=== PATIENT | male | born 1960 | race Caucasian/White ===

== ENCOUNTER 2016-10-11 05:54 | Observation (INO) | payer OTHER ==
[2016-10-11] MEDS ORDERED: NS 0.9% 1000 ML* 1,000 ML IV SCH (06:15)
[2016-10-11 06:43] LABS: Hematocrit 44 % (42-52); Hemoglobin 14.8 g/dl (14.0-18.0); Mean Corpuscular HGB Conc 34 g/dl (31-36); Mean Corpuscular Hemoglobin 29 pg (27-31); Mean Corpuscular Volume 84 fL (80-94); Mean Platelet Volume 8 um3 (7.4-10.4); Red Blood Count 5.17 10^6/ul (4.0-5.4); Red Cell Distribution Width 13 % (10.5-15); White Blood Count 8.1 10^3/ul (3.5-10.8)
[2016-10-11 06:53] LABS: Albumin 4.2 g/dL (3.2-5.2); BUN/Creatinine Ratio 12.7 (8-20); Calcium 9.2 mg/dL (8.6-10.3); EGFR African American 89.4 (>60); EGFR Non-African American 69.5 (>60); Globulin 3.1 g/dL (2-4); Potassium 3.2 mmol/L (3.5-5.0); Total Bilirubin 0.7 mg/dL (0.2-1.0); Total Protein 7.3 g/dL (6.4-8.9)
[2016-10-11] MEDS ORDERED: Aspirin TAB* 325 MG PO ONE (07:02)
[2016-10-11] MEDS ORDERED: Potassium Chlor TAB* 20 MEQ TAB.ER PO ONE (07:03)
--- NOTE | 2016-10-11 07:08 | ED ---
Mariam Shook Rebecca, scribed for Joe Begum on 10/11/16 at 0614 . Neurological HPI - HPI Summary HPI Summary: Pt is a 56 y/o M who presents to ED c/o HONG, nausea and dizziness. Sx began suddenly this morning upon waking up and have been constant since onset. Pain is in the lower occipital region on the left side with radiation to the neck. HONG characterized as sharp and severe, ranked 7-8/10. Sx aggravated and alleviated by nothing. Denies weakness, numbness. Reports an episode of unilateral blurred vision of the R visual field and speech aphasia yesterday at 1830. Describes aphasia as "I could still think fine, but when I started talking , I couldn't finish my sentences" and "I would forget what I was saying." Visual changes lasted 10 minutes and aphasia lasted an hour. Both symptoms spontaneously resolved and are not present currently. PMHx HTN. - History of Current Complaint Chief Complaint: EDGeneral Stated Complaint: STROKE LIKE SYMPTOMS Time Seen by Provider: 10/11/16 06:04 Hx Obtained From: Patient Onset/Duration: Sudden Onset, Still Present Timing: Constant Onset Severity: Severe Current Severity: Severe Headache Location: Occipital (Left), Radiates to : - Neck Pain Intensity: 8 Pain Scale Used: 0-10 Numeric Character: Sharp Aggravating: Nothing Alleviating: Nothing Associated Signs and Symptoms: Positive: Visual Changes - R blurred vision yesterday at 1830 for 10 minutes, resolved, Dizziness, Impaired Speech - Speech aphasia yesterday for 1 hour at 1830, resolved, Nausea/Vomiting - nausea. Negative: Weakness, Numbness - Allergy/Home Medications Allergies/Adverse Reactions: Allergies Allergy/AdvReac Type Severity Reaction Status Date / Time No Known Allergies Allergy Verified 10/11/16 05:55 PMH/Surg Hx/FS Hx/Imm Hx Endocrine/Hematology History: Denies: Hx Diabetes Cardiovascular History: Reports: Hx Hypertension Denies: Hx Coronary Artery Disease Infectious Disease History: No Infectious Disease History: Denies: Traveled Outside the [place] in Last 30 Days - Family History Known Family History: Positive: Cardiac Disease - Social History Occupation: Employed Full-time Substance Use Type: Reports: None Review of Systems Positive: Blurred Vision - R blurred vision yesterday, resolved Positive: Nausea Neurological: Other - Speech aphasia yesterday, resolved Positive: Headache - Lower left occipital into the neck. Negative: Weakness, Numbness All Other Systems Reviewed And Are Negative: Yes Physical Exam - Summary Physical Exam Summary: Appearance: Well appearing, no pain distress Skin: warm, dry, reflects adequate perfusion Head/face: normal Eyes: EOMI, AILYN ENT: normal Neck: supple, nontender Resp: CTA, breath sounds present Cardio: RRR, pulses symm Abd: nontender, soft Bowel: present Musc: normal, strength/ROM intact Neuro: normal, sensory motor intact, A&Ox3, no pronator drift, no focal neurological deficits, no slurred speech, no facial droop Triage Information Reviewed: Yes Vital Signs On Initial Exam: Initial Vitals Temp Pulse Resp BP Pulse Ox 97.4 F 62 18 155/100 99 10/11/16 05:56 10/11/16 05:56 10/11/16 05:56 10/11/16 05:56 10/11/16 05:56 Vital Signs Reviewed: Yes Diagnostics - Vital Signs Vital Signs Temp Pulse Resp BP Pulse Ox 10/11/16 05:56 97.4 F 62 18 155/100 99 - Laboratory Result Diagrams: 10/11/16 06:10 10/11/16 06:10 Lab Statement: Any lab studies that have been ordered have been reviewed, and results considered in the medical decision making process. NIH Scale - NIH Scale Level of Consciousness: Alert/Keenly Responsive Ask Patient the Month and His/Her Age: Both Correct Ask Pt to Open/Close Eyes and Admin Assistant/Release Non-Paretic Hand: Both Correctly Best Gaze (Only Horizontal Eye Movement): Normal Visual Field Testing: No Visual Loss Facial Paresis-Pt to Smile & Close Eyes or Grimace Symmetry: Normal/Symmetrical Motor Function - Right Arm: No Drift-Holds 10 Seconds Motor Function - Left Arm: No Drift-Holds 10 Seconds Motor Function - Right Leg: No Drift-Holds 10 Seconds Motor Function - Left Leg: No Drift-Holds 10 Seconds Limb Ataxia-Must be out of Proportion to Weakness Present: Absent Sensory (Use Pinprick to Test Arms/Legs/Trunk/Face): Normal Best Language (Describe Picture, Name Items): No Aphasia Dysarthria (Read Several Words): Normal Extinction and Inattention: No Abnormality Total Score: 0 Course/Dx - Course Assessment/Plan: Pt is a 56 y/o M who presents ot ED c/o sharp, lower left occipital HONG, nausea and dizziness that suddenly began this morning upon waking up and have been constant since onset. Denies numbness, weakness. Additionally reports a brief episode of speech aphasia and blurred vision yesterday that began at 1830 and spontaneously resolved. NIH stroke scale of 0. Discussed care of pt with Dr. Egan, neurologist, who advised pt to be admitted. Pt will be signed out pending dispo, awaiting brain CT results, EKG and labs. - Diagnoses Provider Diagnoses: TIA (transient ischemic attack) - Physician Notifications Discussed Care Of Patient With: Dr. Egan - Neurologist, who advises Time Discussed With Above Provider: 06:59 Discharge - Discharge Plan Condition: Good Disposition: OTHER Discharge Disposition Comment: Signed out, awaiting dispo, pending brain CT results, EKG and labs Referrals: Alan Daniel MD [Primary Care Provider] - The documentation as recorded by the Mariam acharya Rebecca accurately reflects the service I personally performed and the decisions made by , Joe Begum.
[2016-10-11] MEDS ORDERED: Iohexol 350* (CONTRAST) 500 ML MDV IV ONE (07:17)
--- NOTE | 2016-10-11 07:45 | RAD ---
INDICATION: Headaches COMPARISON: none TECHNIQUE: Noncontrast axial source images were acquired from the skull base to the vertex. FINDINGS: Ventricles/sulci: The ventricles and cisterns are normal in size and configuration for age. Brain parenchyma: There is no focal parenchymal finding, evidence of intracranial mass, or intracranial mass effect. Intracranial hemorrhage:None. Extra-axial spaces: There are no abnormal extra axial fluid collections or evidence of extra-axial mass. Calvarium: There is no calvarial fracture or other calvarial abnormality. Scalp: There is no evidence of scalp or extracalvarial soft tissue abnormality. Paranasal sinuses/mastoid: The paranasal sinuses and mastoid air cells are clear. Other: None. IMPRESSION: NEGATIVE EXAMINATION
--- NOTE | 2016-10-11 09:58 | RAD ---
INDICATION: TIA. COMPARISON: Comparison is made with a prior CT of the brain from October 11, 2016. TECHNIQUE: A CT angiogram of the head and neck was performed following intravenous injection of 80 ml of Omnipaque 350 nonionic contrast. Contiguous axial sections were obtained from the thoracic inlet through the skull vertex. Images were reconstructed in the coronal and sagittal planes and in a 3-D volume rendered format. The distal cervical internal carotid artery diameter is used as the denominator for stenosis measurement. FINDINGS: RIGHT CAROTID: The common and internal carotid arteries appear patent without evidence stenosis. LEFT CAROTID: The common and internal carotid arteries appear patent without evidence for stenosis. VERTEBRALS: The vertebral arteries appear patent. There is a dominant left vertebral artery. CTA BRAIN: The internal carotid, anterior and middle cerebral arteries appear patent without evidence for high-grade stenosis or occlusion. The vertebral, basilar and posterior cerebral arteries appear patent without evidence for high-grade stenosis or occlusion. No gross focal perfusion abnormalities are seen. No aneurysm or vascular malformation is seen. NECK: No significant enlarged lymph nodes are seen within the neck. The thyroid, parotid and submandibular glands appear to be within normal limits. The lung apices appear clear. There is mild mucosal thickening within the maxillary sinuses. The paranasal sinuses and mastoid air cells otherwise appear clear. IMPRESSION: NO EVIDENCE FOR CAROTID STENOSIS OR LARGE VESSEL INTRACRANIAL THROMBUS. CPT II Codes: 3100F
[2016-10-11] MEDS ORDERED: Acetaminophen TAB* 325 MG PO PRN (11:35)
[2016-10-11 12:04] LABS: HDL Cholesterol 32.2 mg/dL
--- NOTE | 2016-10-11 14:46 | RAD ---
HISTORY: Headache, dizziness, vision loss of right eye COMPARISONS: CT dated October 11, 2016 TECHNIQUE: The following sequences were obtained of the head: Sagittal T1-weighted images, axial T2-weighted images, axial FLAIR images, axial susceptibility weighted images, axial T1-weighted images. Additionally, axial diffusion-weighted images were obtained with calculated apparent diffusion coefficients. FINDINGS: HEMORRHAGE/INFARCT: There is no hemorrhage or acute infarct. MASSES/SHIFT: There is no mass or shift. EXTRA-AXIAL SPACES/MENINGES: There are no extra-axial fluid collections. SULCI AND VENTRICLES: The sulci and ventricles are normal in size and position for the patient's stated age. CEREBRUM: There are several, scattered small foci of elevated T2/FLAIR signal within the periventricular and subcortical white matter. Check Embosser lesions can be seen within the left cerebral hemisphere on axial image 17 measuring up to 0.5 cm in size. BRAINSTEM: There are no focal parenchymal abnormalities. CEREBELLUM: There are no focal parenchymal abnormalities. The cerebellar tonsils are normal in size and position. SELLA: The sella is normal. PINEAL: The pineal region is clear. CP ANGLE/TEMPORAL BONES: The labyrinthine structures are grossly normal. VESSELS: Normal flow-voids are noted within the visualized vertebral vasculature. DIFFUSION ABNORMALITIES: There are no diffusion abnormalities. PARANASAL SINUSES/MASTOIDS: The paranasal sinuses are clear. ORBITS: The orbits are unremarkable. BONES AND SOFT TISSUE: No bone or soft tissue abnormalities are noted. OTHER: None IMPRESSION: 1. THERE ARE SEVERAL, SCATTERED, SMALL FOCI OF ELEVATED T2/FLAIR SIGNAL WITHIN THE PERIVENTRICULAR AND SUBCORTICAL WHITE MATTER. WHILE THESE FINDINGS ARE NONSPECIFIC, THEY CAN BE SEEN IN ASSOCIATION WITH MIGRAINE HEADACHE, THE SEQUELA OF PREVIOUS INFECTION OR INFLAMMATION, AND CHRONIC SMALL VESSEL ISCHEMIA. DEMYELINATING DISEASE IS ALSO WITHIN THE DIFFERENTIAL, BUT IS CONSIDERED LESS LIKELY IN THE ABSENCE OF THE APPROPRIATE CLINICAL PRESENTATION. 2. THERE IS NO RESTRICTED DIFFUSION TO SUGGEST ACUTE INFARCT
[2016-10-11 16:17] VITALS: BP 152/95
[2016-10-11] MEDS ORDERED: Atorvastatin* 40 MG TAB PO SCH (17:00)
--- NOTE | 2016-10-11 18:29 | PN ---
Progress Note - Progress Note Note: Appreciate consultation from Dr. Egan. Based on MRI and symptoms, suspect patient had migraine with aura. Plan to discharge to home with new prescriptions for refills of lisinopril and atorvastatin. Patient encouraged to follow up with Dr. Daniel regarding healthy lifestyle changes given hypertension, hyperlipidemia, and obesity. Discharge to home.
--- NOTE | 2016-10-11 21:27 | HP ---
HISTORY AND PHYSICAL: DATE OF ADMISSION: 10/11/16 PRIMARY CARE PHYSICIAN: Antony Daniel MD ATTENDING PHYSICIAN: Faith Ambriz DO *(dictation provided by Dai Mccabe NP) CHIEF COMPLAINT: Vision change with altered mental status and then headache. HISTORY OF PRESENT ILLNESS: Mr. Acosta is a 56-year-old male with a past medical history of hypertension and hyperlipidemia who presents to the hospital today with complaint of vision changes followed by some word-finding difficulty and then a headache. Mr. Acosta states that he was feeling in his normal state of health yesterday while at a conference. He was listening to the speaker when he felt that he had a change in his vision. He describes it as feeling like light around him was on the "wrong exposure" and overly bright. This sensation seemed to appear mostly on the right field of vision. When he turned his head, he noticed that the person's face in front of him had a white spot over to the right side. This resolved after about 4 to 5 minutes. During the same meeting thereafter, he attempted to make some points and he felt like when he began to speak he could not find the words that he was looking for. He lost his train of thought. He told his colleagues that he was having difficulty finding words and they were concerned that perhaps he was having a stroke. He went back to his office and they looked up the symptoms of a stroke and confirmed that yes in fact he could be having a stroke. He ate some food, took some aspirin, and since his symptoms have resolved; decided to drive home. He slept well. When he woke up this morning, he had a severe headache in the back of his head. It was associated with dizziness and nausea. He does not have a history of migraines and this headache was very unusual for him. He is currently pain free and feels that his mentation is back to baseline as well as his vision. He denies any other symptoms. He has had no chest pain, no shortness of breath, no nausea, and no abdominal pain. He has been eating and drinking well. In the emergency room, Mr. Acosta again states he is back to baseline. He had a CT of the brain, which showed no acute abnormality. The head CTA showed no evidence for carotid stenosis or large-vessel intracranial thrombus. His labs were unremarkable. PAST MEDICAL HISTORY: 1. Hypertension. 2. Hyperlipidemia. MEDICATIONS: The patient states that he has been taking lisinopril 40 mg daily and a statin; however, he ran out of the medications and has not had them for at least a month. FAMILY HISTORY: Dad has CHF and has multiple stents. Mom is alive and well. The patient's mother's father also had significant heart disease. SOCIAL HISTORY: No reported tobacco use. The patient drinks on a weekly basis , approximately 2 beers on the weekend. He denies any drug use. He lives with his , his health care proxy. REVIEW OF SYSTEMS: A 14-point review of systems was completed with Mr. Acosta and all those not mentioned above were negative. PHYSICAL EXAMINATION GENERAL: Mr. Acosta is sitting in the bed, he is in no acute distress. He is calm and cooperative on my examination. VITAL SIGNS: Temperature 98.2, heart rate 79, respiratory rate 16, O2 saturation 100% on room air, and blood pressure 138/80. LUNGS: Clear to auscultation bilaterally with no accessory muscle use and good aeration. HEART: S1 and S2. No murmur, rub, or gallop and regular. ABDOMEN: Soft and nontender with bowel sounds positive x4. EXTREMITIES: No cyanosis or edema. SKIN: Intact. NEUROLOGIC: He is alert, he is oriented x3. He moves all extremities equally. There is no fascial asymmetry or focal weakness. Extraocular movements are intact. There is no pronator drift. Tongue is midline. Sensation is intact. DIAGNOSTIC STUDIES/LAB DATA: Sodium 140, potassium 3.2, chloride 104, serum bicarbonate 29, BUN 14, creatinine 1.10, and glucose 108. INR 0.95. WBC 8.1, hemoglobin 14.8, hematocrit 44, and platelet count 197. CT brain is read as follows: Negative exam. Head CTA is read as follows: "No evidence for carotid stenosis or large vessel intracranial thrombus." EKG: Sinus rhythm with the heart rate in the 60s and no evidence of ischemia. ASSESSMENT: Mr. Acosta is a 56-year-old male with a past medical history of hypertension and hyperlipidemia who is not currently on treatment, who presented to the hospital today with concern for self-limited episode where he had vision changes and difficulty finding words followed by a separate episode where he had a severe headache associated with nausea and dizziness. His symptoms are consistent with a migraine. However, since it would be unusual to have new onset migraines at his age TIA must be ruled out. Our plans are for observation in the hospital for the followin. Question transient ischemic attack: The patient's CT is negative. His CTA is also negative. MRI has been taken, but the report is pending. Transthoracic echocardiogram has been ordered. Telemetry monitoring has not shown any atrial fibrillation. The patient has had aspirin and he will have atorvastatin and lisinopril. I will note that the emergency room physician did order a hypercoagulable panel and that is pending. 2. Hypertension: Continue lisinopril. 3. Hyperlipidemia: Plan to start atorvastatin 40 mg and lipid profile is pending. 4. DVT prophylaxis: With early mobility. 5. Disposition: To telemetry floor. TIME SPENT: Approximately 60 minutes was spent in the admission of this patient , more than half of the time was spent with the patient at the bedside reviewing the events leading up to this hospitalization, performing the physical examination, and reviewing my plan of care. DAI MCCABE NP [id number]/[facility] #: [id number] [place]
--- NOTE | 2016-10-11 22:01 | CONS ---
NEUROLOGY CONSULTATION: DATE OF CONSULT: 10/11/16 LOCATION: He is an inpatient, room 443. REFERRING PHYSICIAN: Dr. Ambriz. CHIEF COMPLAINT: Headache, visual changes, word finding problems. HISTORY OF PRESENT ILLNESS: Paul Acosta is a 56-year-old right-handed man who was in his usual state of health yesterday at work at a meeting. He noted a brightness off to his right temporal periphery. He looked over as he thought there was some light coming through and it seemed to move with his vision. He looked back and he had difficulty seeing on the right side of his visual field due to a brightness "like a washed out picture." There was no color or shape to it. It lasted perhaps 4 and no more than 5 minutes and then resolved. Sometime later, approximately 20 to 30 minutes, he had difficulty coming up with the words he wanted to say. He would stutter and not be able to get the words out he wanted to at the meeting. He did not come up with any nonsense words and he understood what was going on around him. That resolved in about 5 to perhaps 10 minutes also. After that, he just did not feel well, felt a little bit dizzy, and nauseous. He went to his apartment in [place] where he works and had something to eat and rested. After that, he drove home to [place]. He slept well last night, but when he woke up this morning he had a pretty bad headache and felt nauseous. He decided after discussion with his to come to the emergency room for evaluation. The headache has diminished after a couple of hours of being here. He has never had similar sensory symptoms or language problems before. He gets rare headaches, perhaps a few times a year, they last a couple of hours. He typically takes an [id number] analgesic and resolve over time. There is no history of episodic visual problems or sensory symptoms. PAST MEDICAL HISTORY: Notable for hypertension for which he has been noncompliant. He ran out of his lisinopril about a month ago and did not continue it. He also has a history of hyperlipidemia, but also did not refill his statin, which he was supposed to be on. MEDICATIONS: He is not taking any medications currently. FAMILY HISTORY: Noncontributory. REVIEW OF SYSTEMS: Notable for weight loss intentionally, he cut back alcohol to lose weight, he does not smoke. There is no history of cardiac disease, renal problems, pulmonary disease, or GI symptoms. No recent fevers or chills. No head trauma. No history of seizures or syncope. No history of mood or anxiety disorders. PHYSICAL EXAM: He is well nourished and well hydrated. Temperature 97.9 orally , blood pressure running about 140 to 150 over 90 to 100, heart rate in the 70s and regular, respirations 20. Oxygen saturation is 95% on room air. Heart is in a regular rate and rhythm without murmurs, rubs or gallops. Lungs are clear. Carotid pulses are present and no cervical bruits. Neurological Exam: Pupils, fundi, and eye movements are normal. Facial musculature is intact and symmetric. Facial sensation to light tough is intact and symmetric. Hearing is intact. Neck strength is intact. Motor exam reveals normal muscle tone and strength proximally and distally in the upper and lower extremities. There is no pronator drift. There is no rest or action tremor. Finger taps are normal in the hands. Heel- to- ruiz maneuver is normal bilaterally. Sensory exam to light touch and vibration is normal in the limbs. Romberg sign is absent. Gait and station are normal. Tandem gait is normal. Deep tendon reflexes are intact and symmetric in upper and lower extremities. Plantar responses are flexor bilaterally. He is alert and oriented and a good detailed historian. Memory is intact and language is fluent. He has normal attention, concentration, and fund of knowledge. DIAGNOSTIC STUDIES/LAB DATA: Includes a normal CBC, normal chemistry profile other than potassium of 3.2 and glucose 108. INR is 0.95. MRI of the brain was reviewed personally. It was interpreted as showing some nonspecific scattered white matter lesions. I reviewed it and it is really quite minimal. There is no evidence of an acute infarct or hemorrhage. CT angiogram of the neck and brain is reviewed and it looks completely normal. I do not see posterior communicating arteries, but otherwise it is a completely normal study. Echocardiogram reported in the chart reveals some diastolic dysfunction, it is an otherwise unremarkable echocardiogram. IMPRESSION AND PLAN: My impression is that Mr. Acosta probably had a migrainous aura. Nevertheless, he does not have a clear history of migraines and given his vascular risk factors, I agree with admission and workup for a possible transient ischemic attack. So far, his workups are quite negative. He has been restarted on his lisinopril and atorvastatin and also being started on an aspirin. I think he should be monitored overnight on telemetry for atrial fibrillation. If that is negative, then I think he can be discharged home on his antihypertensives and statin. I think the aspirin could be continued for a while, but if he does not have recurrent symptoms that probably could be stopped too, as at this point my differential leans more towards a migrainous aura than a transient ischemic attack. Nevertheless, he would follow the recommendations outlined above. [id number]/[facility] #: [id number] [place]
[2016-10-12] MEDS ORDERED: Aspirin TAB* 325 MG PO SCH (09:00)
[2016-10-12] MEDS ORDERED: Lisinopril TAB* 10 MG PO SCH (09:00)
--- NOTE | 2016-10-14 07:52 | DS ---
HOSPITAL MEDICINE DISCHARGE SUMMARY: DATE OF ADMISSION: 10/11/16 DATE OF DISCHARGE: 10/12/16 PRIMARY CARE PHYSICIAN: Antony Daniel MD ATTENDING PHYSICIAN: DO Cristina Lechuga(dictation provided by Dai Mccabe NP) PRIMARY DIAGNOSIS: Migraines. SECONDARY DIAGNOSES: 1. Hypertension. 2. Hyperlipidemia. MEDICATIONS AT THE TIME OF DISCHARGE: 1. Lisinopril 40 mg p.o. daily. 2. Atorvastatin 40 mg p.o. daily. HOSPITAL COURSE: Mr. Acosta is a 56-year-old male with a past medical history of hypertension and hyperlipidemia who presented to the hospital on 10/11/16 with concern for vision changes with altered mental status and then headache. Please see the dictated H and P from myself for complete details. In brief, the patient reported he had been at a meeting when noticed some bright white light in his right- sided field of vision. He then had some difficulty finding words. He went home and felt better, but when he woke up in the morning, he had a severe headache in the back of his head. In the emergency room, he had a CT scan, which showed no acute abnormality and a CTA of the head, which showed no acute abnormality. Mr. Acosta was admitted to the hospital. He received consultation by Dr. Alan Egan, I refer you to that note for complete details. He had an MRI, which was read as follows: "There are several scattered small foci at the elevated T2/FLAIR signal within the periventricular and subcortical white matter. All these findings are nonspecific. They can be seen in association with migraine headaches as a sequelae of previous inspection or inflammation and chronic small vessel ischemia. Demyelinating diseases is also within the differential, but is consider less likely in the absence of the appropriate clinical presentation. There is no restricted diffusion to suggest acute infarct." The patient had transthoracic echocardiogram, which showed "left ventricular chamber size is normal, moderate concentric left ventricular hypertrophy is observed, the estimated ejection fraction is 60% to 65%, and trace mitral regurgitation." The patient was monitored throughout his hospitalization on telemetry without any evidence of arrhythmia. Mr. Acosta was medically stable to be discharged in the evening of 10/12/16. He had let his lisinopril and atorvastatin, labs and I provided him with a prescription for both of those and encouraged him strongly to follow up with Dr. Daniel. The patient's symptoms are being attributed to migraine. He has no evidence of a stroke. We did tell the patient that he should follow up Dr. Daniel regarding good management of his hypertension and hyperlipidemia as well as his weight for prevention of stroke and NV, etc. DISPOSITION: Home. DIET: Low fat, low salt. ACTIVITY: As tolerated. FOLLOWUP PLANS: Please follow up with Dr. Daniel in the next 4 to 7 days regarding this acute hospitalization. TIME SPENT: Approximately 60 minutes was spent in the discharge of this patient , more than half of the time was spent with the patient at the bedside reviewing the events leading up to this hospitalization, performing the physical examination, and reviewing my plan of care. DAI MCCABE NP CC: Dr. Daniel * [id number]/CPS #: [id number] [place]
[2016-10-14 12:58] LABS: Protein C Activity 124 % (70 - 150)
[2016-10-14 13:50] LABS: LAC APTT 32 sec (26 - 36); LAC INR 1.1; Lac DRVVT Screen Ratio 1.1 ratio (0.0 - 1.1); Prothrombin Time(LAC) 11.7 sec
[2016-10-15 10:24] LABS: Prothrombin 20210 Mutation Negative (Negative)
== END 2016-10-11 19:30 | disposition home or self-care (01) ==
LOC: ED 05:54 → MEDTELE 07:11
PROVIDERS: ADMIT Hospitalist; ATTEND Hospitalist
DX: G43.909 Migraine, unspecified, not intractable, without status migrainosus (principal); I10 Essential (primary) hypertension; E78.5 Hyperlipidemia, unspecified; Z79.899 Other long term (current) drug therapy; Z91.14 Patient's other noncompliance with medication regimen; R42 Dizziness and giddiness; R47.01 Aphasia; H53.8 Other visual disturbances
CPT/HCPCS: 36415; 70450; 70496; 70498; 70551; 80053; 80061; 81240; 85025; 85300; 85303; 85306; 85307; 85610; 85613; 85730; 86850; 86900; 86901; 93005; 93306; 99284; A9270-GY; G0378; Q9967